=== PATIENT | female | born 2005 | race Hispanic/Latino ===

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

== ENCOUNTER 2024-02-20 22:14 | Emergency (ER) | payer OTHER, SELFPAY ==
--- OUTSIDE RECORDS SUMMARY | 2024-02-20 22:18 | XMS REPORT | Continuity of Care Document ---
Author Name Unknown Address [address] [facility]. 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 Role Phone Maldonado Castañeda NP Primary Care Physician VIKTOR FARNSWORTH Attending Clinician Unavailable Doctor Unassigned, [place] Attending Clinician U VIKTOR Mon Admitting Clinician Unavailable Payers Payer Name Policy Type Policy Number Effective Date Expirati on Date Source Allergies, Adverse Reactions, Alerts Allergy Name Allergy Type Status Severity Reaction(s) Onset Date Inactive Date Treating Clinician Comments Source NO KNOWN ALLERGIE S Drug Class Active [facility] Social History Social Habit Start Date Stop Date Quantity Comments Source [facility] identity [facility] History of Social function 2023-06-03 00:00:00 2023-06-03 00:00:00 [facility] Sex Assigned At 2005 00:00:00 2005 00:00:00 [facility] Smoking Status Start Date Stop Date Source Tobacco smoking consumption unknown [facility] Medications Ordered Medication Name Filled Medication Name Start Date Stop Date Current Medication? Ordering Clinician Indication Dosage Frequency Signature (SIG) Comments Components Source bromphenira mine-pseudo ephedrine-D M 2 mg-30 mg-10 mg/5 mL oral syrup 02-14 00:00: 00 Yes 10mg/5 mL Russel Markham TAKE 1 TAB WITH BREAKFAST 2022-10 00:00: 00 02-14 00:00 :00 No 40 Russel F Rashi TAKE 2 TABLETS AT BEDTIME. 2022-10 00:00: 00 02-14 00:00 :00 No 25 Russel F Rashi TAKE HALF TO 1 TAB AT BEDTIME 2022-10 00:00: 00 02-14 00:00 :00 No 1 Russel F Rashi TAKE 2 TABLETS AT BEDTIME. 2022-10 00:00: 00 02-14 00:00 :00 No 25 Russel F Rashi TAKE HALF TO 1 TAB AT BEDTIME 2022-10 00:00: 00 02-14 00:00 :00 No 1 Russel F Rashi propranoloL 20 mg tablet 2022-10 00:00: 00 Yes [id number] 20mg TAKE 1 TABLET BY MOUTH IN THE MORNING AND IN THE EVENING [facility] TAKE 1 TAB WITH BREAKFAST 07-19 00:00: 00 02-14 00:00 :00 No 40 Russel F Rashi TAKE 1 TABLET AT BEDTIME. 07-19 00:00: 00 02-14 00:00 :00 No 25 Russel F Rashi TAKE HALF TO 1 TAB AT BEDTIME 07-19 00:00: 00 02-14 00:00 :00 No 1 Russel F Rashi PROPRANOLOL 9 00:00: 00 Yes Russel F Rashi LATUDA 06-19 00:00: 00 02-14 00:00 :00 No Russel F Rashi TAKE 1 TABLET BY MOUTH EVERYDAY AT BEDTIME 06-17 00:00: 00 Yes Russel F Rashi TAKE 1 TAB WITH BREAKFAST 06-17 00:00: 00 02-14 00:00 :00 No 40 Russel F Rashi TAKE 1 TABLET AT BEDTIME. 06-17 00:00: 00 02-14 00:00 :00 No 25 Russel F Rashi PROPRANOLOL 06-10 00:00: 00 Yes Russel F Rashi propranoloL 20 mg tablet 06-10 00:00: 00 08-07:00 :00 No [id number] 20mg Take 1 tablet by mouth in the morning and 1 tablet in the evening. [facility] SUMATRIPTAN 06-03 00:00: 00 Yes Russel Markham atogepant (QULIPTA) 30 mg Tab 06-03 00:00: 00 Yes [id number] 1{tbl} Take 1 tablet by mouth in the morning. [facility] SUMAtriptan 50 mg tablet 06-03 00:00: 00 06-04 04:59 :00 No [id number] 50mg Take 1 tablet by mouth once now for 1 dose. Max 200mgrs in 24hr, may retake 2 hours later. [facility] LATUDA 40 mg tablet 05-21 00:00: 00 Yes 40mg Take 1 tablet by mouth daily with breakfast. [facility] lamoTRIgine 25 mg tablet 05-21 00:00: 00 Yes 25mg Take 1 tablet by mouth at bedtime. [facility] TAKE 1 TABLET AT BEDTIME. 05-21 00:00: 00 02-14 00:00 :00 No 25 Russel Markham TAKE 1 TAB WITH BREAKFAST 05-21 00:00: 00 02-14 00:00 :00 No 40 Russel Markham BUT/APAP/CA F 05-11 00:00: 00 Yes Russel Markham TAKE 1 CAPLET EVERY 4-6 HOURS DAILY NEEDED. 05-11 00:00: 00 02-14 00:00 :00 No [id number] Russel Markham DICLOFENAC DR 05-02 00:00: 00 Yes Russel Markham ONDANSETRON ODT 05-02 00:00: 00 Yes Russel Markham TAKE 1 TABLET AT BEDTIME. 04-25 00:00: 00 02-14 00:00 :00 No 25 Russel Markham TAKE 1 TABLET DAILY WITH BREAKFAST. 04-25 00:00: 00 02-14 00:00 :00 No 20 Russel Markham LATUDA 2022-0 5-30 00:00: 00 02-14 00:00 :00 No Russel F Rashi LATUDA 2022-0 5-05 00:00: 00 02-14 00:00 :00 No Russel F Rashi TAKE 1 TABLET BY MOUTH EVERYDAY AT BEDTIME 3-0 5-04 00:00: 00 Yes Russel F Rashi TAKE 1 TAB IN THE EVENING WITH DINNER 2022-0 5-04 00:00: 00 02-14 00:00 :00 No 20 Russel F Rashi TAKE 1 TABLET AT BEDTIME. 2022-0 5-04 00:00: 00 02-14 00:00 :00 No 25 Russel F Rashi LATUDA 2022-0 4-05 00:00: 00 02-14 00:00 :00 No Russel F Rashi LAMOTRIGINE 2022-0 4-04 00:00: 00 Yes Russel F Rashi TAKE 1 TABLET AT BEDTIME. 2022-0 4-04 00:00: 00 02-14 00:00 :00 No 25 Russel F Rashi TAKE 1 TAB IN THE EVENING WITH DINNER 2022-0 4-04 00:00: 00 02-14 00:00 :00 No 20 Russel F Rashi LAMOTRIGINE 2022-0 3-03 00:00: 00 Yes Russel F Rashi TAKE 1 TAB IN THE EVENING WITH DINNER 2022-0 3-03 00:00: 00 02-14 00:00 :00 No 20 Russel F Rashi TAKE 1 TABLET AT BEDTIME. 2022-0 3-03 00:00: 00 02-14 00:00 :00 No 25 Russel F Rashi TAKE 1 TAB IN THE EVENING WITH DINNER 2022-0 2-23 00:00: 00 02-14 00:00 :00 No 20 Russel F Rashi HYDROXYZ HCL 2022-0 2-13 00:00: 00 Yes Russel F Rashi LAMOTRIGINE 2022-0 2-07 00:00: 00 Yes Russel F Rashi TAKE 1 TABLET AT BEDTIME. 2022-0 2-03 00:00: 00 02-14 00:00 :00 No 25 Russel F Rashi TAKE 1 TAB IN THE EVENING WITH DINNER 2-03 00:00: 00 02-14 00:00 :00 No 20 Russel Markham LAMOTRIGINE 1-21 00:00: 00 Yes Russel Markham TAKE 1 TABLET AT BEDTIME. 1-20 00:00: 00 02-14 00:00 :00 No 25 Russel Markham TAKE 1 TAB IN THE EVENING WITH DINNER 1-20 00:00: 00 02-14 00:00 :00 No 20 Russel Markham LAMOTRIGINE 1- 00:00: 00 Yes Russel Markham TAKE 1 TO 2 TABLETS TWICE DAILY NEEDED. 1- 00:00: 00 Yes Russel Markham TAKE 1 TABLET AT BEDTIME. 1- 00:00: 00 02-14 00:00 :00 No 25 Russel Markham TAKE 1 TABLET BY MOUTH ONCE DAILY TAKE WITH 5 MG TABLET 2021-10 00:00: 00 Yes Russel Markham IBUPROFEN 800MG 2021-10 2-15 00:00: 00 Yes Russel Markham Dose Unknown 2021-10 2 00:00: 00 Yes Russel Markham MONTELUKAST CHW 5MG 2021-10 2-15 00:00: 00 Yes Russel Markham CIPROFLOXAC N 500MG 2021-10 2-15 00:00: 00 Yes Russel Markham TAKE BY MOUTH DIRECTED ON INSIDE OF PACKAGE 2021-10 00:00: 00 Yes Russel Markham Dose Unknown 2021-10 2-15 00:00: 00 Yes Russel Markham TAKE 1-2 TABLETS BY MOUTH TWICE A DAY NEEDED FOR ANXIETY OR SLEEP 2021-10 2-15 00:00: 00 02-14 00:00 :00 No 25 Russel Markham ESCITALOPRA M TAB 5MG 2021-10 2- 00:00: 00 Yes Russel Markham Dose Unknown 2021-10 1-15 00:00: 00 Yes Russel Markham IBUPROFEN 2021-10 0-19 00:00: 00 Yes 800 Russel Markham Dose Unknown 7-15 00:00: 00 Yes Russel Markham TOME CHRISTINA TABLETA TODOS LOS D 2022-0 7-14 00:00: 00 Yes 5 Russel Edin Rashi Dose Unknown 2022-0 6-02 00:00: 00 Yes Russel F Rashi Dose Unknown 2022-0 5-13 00:00: 00 Yes Russel F Rashi Dose Unknown 2022-0 3-28 00:00: 00 Yes Russel F Rashi Dose Unknown 2022-0 3-28 00:00: 00 Yes Russel F Rashi Dose Unknown 2022-0 3-28 00:00: 00 Yes Russel F Rashi Dose Unknown 2022-0 3-28 00:00: 00 Yes Russel F Rashi Dose Unknown 2-0 3-21 00:00: 00 Yes Russel F Rashi Dose Unknown 2-0 3-21 00:00: 00 Yes Russel F Rashi Dose Unknown 2-0 3-21 00:00: 00 Yes Russel F Rashi Dose Unknown 2-0 3-21 00:00: 00 Yes Russel Edin Rashi Dose Unknown 2-0 2-17 00:00: 00 Yes Russel Markham hydroxyzine HCl 25 mg tablet 2-0 2-17 00:00: 00 Yes 12mg Russel Markham Dose Unknown 2-0 2-17 00:00: 00 Yes Russel Markham TOME CHRISTINA TABLETA TODOS LOS D 2-0 2-17 00:00: 00 Yes Russel Markham ESCITALOPRA M 2-0 2-17 00:00: 00 Yes 5 Russel Markham Dose Unknown 2021-0 1-18 00:00: 00 Yes Russel Markham Lexapro 10 mg tablet 2020-1 2-23 00:00: 00 Yes 1mg Russel Markham Lexapro 5 mg tablet 2020-1 2-23 00:00: 00 Yes 1mg Russel F Rashi Dose Unknown 2020-1 2-23 00:00: 00 Yes Russel F Rashi Dose Unknown 2020-1 2-19 00:00: 00 Yes Russel F Rashi Dose Unknown 2020-1 1-19 00:00: 00 Yes Russel Markham hydroxyzine HCl 25 mg tablet 2020-1 0-18 00:00: 00 Yes 12mg Russel F Rashi Dose Unknown 2020-1 0-18 00:00: 00 Yes Russel Markham Lexapro 10 mg tablet 07-07 00:00: 00 Yes 1mg Russel Markham Dose Unknown 06-14 00:00: 00 Yes Russel Markham fluoxetine 10 mg tablet 05-17 00:00: 00 Yes mg Russel Markham hydroxyzine HCl 25 mg tablet 05-17 00:00: 00 Yes 1mg Russel Markham Dose Unknown 03-08 00:00: 00 Yes Russel Markham Dose Unknown 02-15 00:00: 00 Yes Russel Markham Dose Unknown 02-15 00:00: 00 Yes Russel Markham sumatriptan 25 mg tablet 02-09 00:00: 00 Yes 1mg Russel Markham Dose Unknown 02-09 00:00: 00 Yes Russel Markham Flonase Allergy Relief 50 mcg/actuati on nasal spray,suspe nsion 02-09 00:00: 00 Yes 1mcg/ac tuation Russel Markham prednisone 20 mg tablet 12-16 00:00: 00 Yes 1mg Russel Markham Dose Unknown 2016-10 0 00:00: 00 Yes Russel Markham prednisone 20 mg tablet 2016-10 00:00: 00 Yes 1mg Russel Markham cetirizine 10 mg tablet 2016-10 0 00:00: 00 Yes 1mg Russel Markham Tessalon Perles 100 mg capsule 2016-10 00:00: 00 Yes 1mg Russel Markham azithromyci n 250 mg tablet 2015-10 00:00: 00 Yes mg Russel Markham amoxicillin 500 mg tablet 02-20 00:00: 00 Yes 1mg Russel Markham Zithromax Z-Mehdi 250 mg tablet 11-10 00:00: 00 Yes 1mg Russel Markham Zithromax Z-Mehdi 250 mg tablet 07-04 00:00: 00 Yes 1mg Russel Markham Immunizations Ordered Immunization Name Filled Immunization Name Date Status Comments Source meningococcal MCV4P meningococcal MCV4P 00:00:00 Completed Russel Markham HPV, quadrivalent HPV, quadrivalent 2016-05-30 00:00:00 Completed Russel Markham HPV, quadrivalent HPV, quadrivalent 2015-11-23 00:00:00 Completed Russel Makrham Tdap Tdap 2015-11-23 00:00:00 Completed Russel Markham meningococcal MCV4P meningococcal MCV4P 00:00:00 Completed Russel Markham Vital Signs Vital Name Observation Time Observation Value Comments S ource Systolic blood pressure 2023-06-11 18:03:00 105 mm[Hg] [place] [facility] Diastolic blood pressure 2023-06-11 18:03:00 73 mm[Hg] [facility] Heart rate 2023-06-11 18:03:00 71 /min [facility] Body height 2023-06-11 18:03:00 160 cm [facility] Body weight 2023-06-11 18:03:00 90.402 kg [facility] BMI 2023-06-11 18:03:00 35.30 kg/m2 [facility] Systolic blood pressure 2023-06-03 18:53:00 113 mm[Hg] [facility] Diastolic blood pressure 2023-06-03 18:53:00 79 mm[Hg] [facility] Body height 2023-06-03 18:53:00 165.1 cm [facility] Body weight 2023-06-03 18:53:00 89.903 kg [facility] BMI 2023-06-03 18:53:00 32.98 kg/m2 [facility] BP Systolic 2024-02-15 10:50:00 122 mm[Hg] Martin Markham BP Diastolic 2024-02-15 10:50:00 80 mm[Hg] Brandon Markham Weight Measured 2024-02-15 10:50:00 182.20 pounds Russel Markham Height Measured 2024-02-15 10:50:00 64.00 inches Russel Markham Body Temperature 2024-02-15 10:50:00 98.20 degrees Russel Markham Heart Rate 2024-02-15 10:50:00 71.00 /min Lupe en F Rashi Respiratory Rate 2024-02-15 10:50:00 19.00 /min Russel F Rashi BP Systolic 2023-05-11 14:27:00 111 mm[Hg] Step hen F Rashi BP Diastolic 2023-05-11 14:27:00 73 mm[Hg] Brandon phen F Rashi Weight Measured 2023-05-11 14:27:00 201.80 pounds Russel F Rashi Height Measured 2023-05-11 14:27:00 64.00 inches Russel F Rashi Body Temperature 2023-05-11 14:27:00 99.30 degrees Russel F Rashi Heart Rate 2023-05-11 14:27:00 84.00 /min Lupe en F Rashi Respiratory Rate 2023-05-11 14:27:00 Russel F Rashi BP Systolic 2023-02-21 16:40:00 Step hen F Rashi BP Diastolic 2023-02-21 16:40:00 Brandon phen F Rashi Weight Measured 2023-02-21 16:40:00 Russel F Rashi Height Measured 2023-02-21 16:40:00 Russel F Rashi Body Temperature 2023-02-21 16:40:00 Russel F Rashi Heart Rate 2023-02-21 16:40:00 Lupe en F Rashi Respiratory Rate 2023-02-21 16:40:00 Russel F Rashi BP Systolic 2023-01-25 16:04:00 142 mm[Hg] Step hen F Rashi BP Diastolic 2023-01-25 16:04:00 87 mm[Hg] Brandon phen F Rashi Weight Measured 2023-01-25 16:04:00 207.60 pounds Russel F Rashi Height Measured 2023-01-25 16:04:00 64.00 inches Russel F Rashi Body Temperature 2023-01-25 16:04:00 98.30 degrees Russel F Rashi Heart Rate 2023-01-25 16:04:00 109.00 /min Step hen F Rashi Respiratory Rate 2023-01-25 16:04:00 18.00 /min Russel F Rashi BP Systolic 2022-03-05 09:05:00 122 mm[Hg] Step hen F Rashi BP Diastolic 2022-03-05 09:05:00 81 mm[Hg] Brandon phen F Rashi Weight Measured 2022-03-05 09:05:00 213.80 pounds Russel F Rashi Height Measured 2022-03-05 09:05:00 64.37 inches Russel F Rashi Body Temperature 2022-03-05 09:05:00 98.40 degrees Russel F Rashi Heart Rate 2022-03-05 09:05:00 99.00 /min Lupe en F Rashi Respiratory Rate 2022-03-05 09:05:00 Russel F Rashi BP Systolic 2021-06-14 15:45:00 Step hen F Rashi BP Diastolic 2021-06-14 15:45:00 Brandon phen F Rashi Weight Measured 2021-06-14 15:45:00 200.60 pounds Russel F Rashi Height Measured 2021-06-14 15:45:00 64.37 inches Russel F Rashi Body Temperature 2021-06-14 15:45:00 97.60 degrees Russel F Rashi Heart Rate 2021-06-14 15:45:00 85.00 /min Lupe en F Rashi Respiratory Rate 2021-06-14 15:45:00 Russel F Rashi BP Systolic 2021-05-17 13:23:00 136 mm[Hg] Step hen F Rashi BP Diastolic 2021-05-17 13:23:00 83 mm[Hg] Brandon phen F Rashi Weight Measured 2021-05-17 13:23:00 195.40 pounds Russel F Rashi Height Measured 2021-05-17 13:23:00 64.37 inches Russel F Rashi Body Temperature 2021-05-17 13:23:00 98.10 degrees Russel F Rashi Heart Rate 2021-05-17 13:23:00 89.00 /min Lupe en F Rashi Respiratory Rate 2021-05-17 13:23:00 Russel F Rashi BP Systolic 2021-02-15 09:25:00 87 mm[Hg] Step hen F Rashi BP Diastolic 2021-02-15 09:25:00 54 mm[Hg] Brandon phen F Rashi Weight Measured 2021-02-15 09:25:00 194.80 pounds Russel F Rashi Height Measured 2021-02-15 09:25:00 65.35 inches Russel F Rashi Body Temperature 2021-02-15 09:25:00 98.70 degrees Russel F Rashi Heart Rate 2021-02-15 09:25:00 79.00 /min Lupe en F Rashi Respiratory Rate 2021-02-15 09:25:00 18.00 /min Russel Edin Markham BP Systolic 2018-12-16 10:49:00 115 mm[Hg] Step hen F Rashi BP Diastolic 2018-12-16 10:49:00 76 mm[Hg] Brandon phen F Rashi Weight Measured 2018-12-16 10:49:00 183.40 pounds Russellizbet Markham Height Measured 2018-12-16 10:49:00 63.00 inches Russel F Rashi Body Temperature 2018-12-16 10:49:00 97.70 degrees Russel Markham Heart Rate 2018-12-16 10:49:00 87.00 /min Lupe en F Rashi Respiratory Rate 2018-12-16 10:49:00 16.00 /min Russellizbet Markham BP Systolic 2017-07-27 08:57:00 105 mm[Hg] Step hen F Rashi BP Diastolic 2017-07-27 08:57:00 68 mm[Hg] Brandon phen F Rashi Weight Measured 2017-07-27 08:57:00 177.60 pounds Russel Markahm Height Measured 2017-07-27 08:57:00 63.00 inches Russel Markham Body Temperature 2017-07-27 08:57:00 98.50 degrees Russel Markham Heart Rate 2017-07-27 08:57:00 85.00 /min Lupe en F Rashi Respiratory Rate 2017-07-27 08:57:00 16.00 /min Russel Markham Procedures Procedure Date / Time Performed Performing Clinicia n Source CT HEAD WO CONTRAST 2023-06-10 20:27:00 Viktor [facility] Encounters Start Date/Time End Date/Time Encounter Type Admission Type Attending [facility] Facility Care Department Encounter ID Source 2024-02-15 10:45:44 2024-02-15 10:45:44 Outpatient [facility] [id number] Russel Markham 2024-02-15 00:00:00 2024-02-15 00:00:00 Outpatient Visit [facility] [id number] Russel Markham 2023-08-12 11:00:00 2023-08-12 11:00:00 Outpatient R VIKTOR FARNSWORTH [facility] [id number] [facility] 2023-08-07 00:00:00 2023-08-07 00:00:00 [facility] 1..840.114 350.1.13.10 [id number] [id number] [facility] 2023-06-28 08:05:49 2023-06-28 08:05:49 Outpatient SFA [facility] [id number] Russel Markham 2023-06-11 13:00:00 2023-06-11 13:23:59 Outpatient R VIKTOR FARNSWORTH [facility] [id number] [facility] 2023-06-11 13:00:00 2023-06-11 13:23:59 Office [facility] 1..840.114 350.1.13.10 4.2.7.2.686 [id number] [facility] 2023-06-10 15:16:13 2023-06-10 23:59:00 Outpatient R VIKTOR FARNSWORTH [facility] [id number] [facility] 2023-06-10 15:16:13 2023-06-10 23:59:00 Hospital Encounter Viktor Farnsworth [facility] 1..840.114 350.1.13.10 4.2.7.2.686 [id number] [facility] 2023-06-10 00:00:00 2023-06-10 00:00:00 [facility] 1..840.114 350.1.13.10 4.2.7.2.686 [id number] [facility] 2023-06-10 00:00:00 2023-06-10 00:00:00 Patient Secure Msg Doctor Unassigned, [place] [facility] 1.2.840.114 350.1.13.10 4.2.7.2.686 [id number] [facility] 2023-06-03 14:00:00 2023-06-03 14:19:55 Outpatient R RUDY FARNSWORTHSSICA [facility] [id number] [facility] 2023-06-03 14:00:00 2023-06-03 14:19:55 [facility] 1.2.840.114 350.1.13.10 4.2.7.2.686 [id number] [facility] 2023-05-31 08:01:21 2023-05-31 08:01:21 Outpatient SFA SFA [id number] Russel Jesus Rashi 2023-04-29 08:05:13 2023-04-29 08:05:13 Outpatient SFA S[facility] [id number] Russel Jesus Rashi 2023-01-25 16:13:07 2023-01-25 16:13:07 Outpatient SFA [facility] [id number] Russel Jesus Rashi 2023-01-17 09:56:59 2023-01-17 09:56:59 Outpatient SFA SFA [id number] Russel Jesus Rashi 2022-12-12 11:21:39 2022-12-12 11:21:39 Outpatient SFA SFA [id number] Russel Edin Rashi 2022-11-22 15:07:26 2022-11-22 15:07:26 Outpatient SFA SFA [id number] Russel Jesus Rashi 2022-11-14 16:13:33 2022-11-14 16:13:33 Outpatient SFA [facility] [id number] Russel Edin Rashi 2022-11-08 13:21:26 2022-11-08 13:21:26 Outpatient SFA S[facility] [id number] Russel Markham 2022-10-30 14:01:58 2022-10-30 14:01:58 Outpatient [facility] [id number] Russel Markham 2022-10-18 13:08:08 2022-10-18 13:08:08 Outpatient [facility] [id number] Russel Markham Results Test Description Test Time Test Comments Results Result Co mments Source LIPID [id number] 01:50:46* Test Item Value Reference Range Interpretation Comme nts CHOLESTEROL (test code = 2210) 147 MG/DL <200 TRIGLYCERIDES (test code = 2232) 213 MG/DL <150 H HDL CHOLESTEROL (test code = 2220) 33 MG/DL >39 L CALC LDL CHOL (test code = 2237) 83 MG/DL <100 NOTE: CALCULATED LDL IS BASED ON GUADALUPE-TAN METHOD WHICHINCLUDES ADJUSTABLE TRIGLYCERIDE:VLDL CHOLESTEROL RATIO.THIS FACTOR VARIES BY MEASURED TRIGLYCERIDE AND NON-HDLCHOLESTEROL CONCENTRATIONS WITH INCREASED CALCULATED LDL SEENIN HIGHER TRIGLYCERIDE OR LOWER NON-HDL SPECIMENS. FOR MOREINFORMATION, SEE CLIENT ANNOUNCEMENT AT [email or web address] RISK RATIO LDL/HDL (test code = 2238) 2.52 RATIO <3.22 TSH, THIRD [id number] 01:27:36* Test Item Value Reference Range Interpretation Comme nts TSH, THIRD GENERATION (test code = 2821) 2.670 UIU/ML 0.400-4.100 [facility] has impo rtant pathology staff changes effective 12/19/2022. New pathology staff will provide uninterrupted, excellent patient care and clinical consultation. See URL: [email or web address] UNLESS OTHERWISE INDICATED, ALL TESTING PERFORMED AT [facility] [address] [place] [id number] CONCRETE TECHNICIAN: LC DOMINGUEZ M.D. CLIA NUMBER [id number] [facility] [place]. [id number] COMPREHENSIVE METABOLIC [id number] 00:00:00* Test Item Value Reference Range Interpretation Comme nts GLUCOSE (test code = 2217) 118 MG/DL BUN (test code = 2208) 7 MG/DL CREATININE (test code = 2214) 0.63 MG/DL eGFR (2020 CKD-EPI) (test code = 80874) 131 ML/MIN/1.73 CALC BUN/CREAT (test code = 2235) 11 RATIO SODIUM (test code = 2231) 143 MEQ/L POTASSIUM (test code = 2228) 4.0 MEQ/L CHLORIDE (test code = 2215) 105 MEQ/L CARBON DIOXIDE (test code = 2206) 22 MEQ/L CALCIUM (test code = 2209) 9.8 MG/DL PROTEIN, TOTAL (test code = 2229) 6.8 G/DL ALBUMIN (test code = 2201) 4.4 G/DL CALC GLOBULIN (test code = 2240) 2.4 G/DL CALC A/G RATIO (test code = 2234) 1.8 RATIO BILIRUBIN, TOTAL (test code = 2207) <0.2 MG/DL ALKALINE PHOSPHATASE (test code = 2204) 77 U/L AST (test code = 2218) 17 U/L ALT (test code = 2219) 16 U/L Russel Jesus RashiLIPID [id number] 00:00:00* Test Item Value Reference Range Interpretation Comme nts CHOLESTEROL (test code = 2210) 147 MG/DL TRIGLYCERIDES (test code = 2232) 213 MG/DL HDL CHOLESTEROL (test code = 2220) 33 MG/DL CALC LDL CHOL (test code = 2237) 83 MG/DL RISK RATIO LDL/HDL (test cod e = 2238) 2.52 RATIO Russel EnglandH, THIRD [id number] 00:00:00* Test Item Value Reference Range Interpretation Comme nts TSH, THIRD GENERATION (test code = 2821) 2.670 UIU/ML Russel Jesus RashiCBC W/AUTO DIFF WITH [id number] 03:45:55* Test Item Value Reference Range Interpretation Comme nts WBC (test code = 1001) 6.3 K/UL 3.5-11.0 RBC (test code = 1002) 4.37 M/UL 3.80-5.40 HEMOGLOBIN (test code = 1003) 12.6 G/DL 11.5-15.5 HEMATOCRIT (test code = 1004) 37.3 % 34.0-45.0 MCV (test code = 1005) 85.4 fL 80.0-99.0 MCH (test code = 1006) 28.8 PG 25.0-33.0 MCHC (test code = 1007) 33.8 G/DL 31.0-36.0 RDW (test code = 1038) 13.1 % 11.5-15.0 NEUTROPHILS (test code = 1008) 53.2 % LYMPHOCYTES (test code = 1010) 38.3 % MONOCYTES (test code = 1011) 6.6 % EOSINOPHILS (test code = 1012) 1.4 % BASOPHILS (test code = 1013) 0.3 % IMMATURE GRANULOCYTES (test code = 1036) 0.2 % NUCLEATED RBCS (test code = 1065) 0.0 /100 WBC'S See_Comment [Automated messa ge] The system which generated this result transmitted reference range: 0.0. The reference range was not used to interpret this result as normal/abnormal. PLATELET COUNT (test code = 1015) 293 K/UL 130-400 ABSOLUTE NEUTROPHILS (test code = 1066) 3.36 K/UL 1.50-7.50 ABSOLUTE LYMPHOCYTES (test code = 1067) 2.42 K/UL 1.00-4.00 ABSOLUTE MONOCYTES (test code = 1068) 0.42 K/UL 0.20-1.00 ABSOLUTE EOSINOPHILS (test code = 1040) 0.09 K/UL 0.00-0.50 ABSOLUTE BASOPHILS (test code = 1069) 0.02 K/UL 0.00-0.20 ABS IMMATURE GRANULOCYTES (test code = 1020) 0.01 K/UL 0.00-0.10 ABS NUCLEATED RBCS (test code = 18294) 0.00 K/UL 0.00-0.11 HEMOGLOBIN [id number] 03:43:50* Test Item Value Reference Range Interpretation Comme nts HEMOGLOBIN A1c (test code = 95232) 5.4 % 4.2-5.6 CBC W/AUTO [id number] 00:00:00* Test Item Value Reference Range Interpretation Comme nts WBC (test code = 1001) 6.3 K/UL RBC (test code = 1002) 4.37 M/UL HEMOGLOBIN (test code = 1003) 12.6 G/DL HEMATOCRIT (test code = 1004) 37.3 % MCV (test code = 1005) 85.4 fL MCH (test code = 1006) 28.8 PG MCHC (test code = 1007) 33.8 G/DL RDW (test code = 1038) 13.1 % NEUTROPHILS (test code = 1008) 53.2 % LYMPHOCYTES (test code = 1010) 38.3 % MONOCYTES (test code = 1011) 6.6 % EOSINOPHILS (test code = 1012) 1.4 % BASOPHILS (test code = 1013) 0.3 % IMMATURE GRANULOCYTES (test code = 1036) 0.2 % NUCLEATED RBCS (test code = 1065) 0.0 /100WBC'S PLATELET COUNT (test code = 1015) 293 K/UL ABSOLUTE NEUTROPHILS (test c ode = 1066) 3.36 K/UL ABSOLUTE LYMPHOCYTES (test c ode = 1067) 2.42 K/UL ABSOLUTE MONOCYTES (test cod e = 1068) 0.42 K/UL ABSOLUTE EOSINOPHILS (test c ode = 1040) 0.09 K/UL ABSOLUTE BASOPHILS (test cod e = 1069) 0.02 K/UL ABS IMMATURE GRANULOCYTES (t est code = 1020) 0.01 K/UL ABS NUCLEATED RBCS (test cod e = 08507) 0.00 K/UL [facility] MarkhamHEMOGLOBIN [id number] 00:00:00* Test Item Value Reference Range Interpretation Comme [facility] HEMOGLOBIN A1c (test code = 44409) 5.4 % [facility] [id number] 05:32:42* Test Item Value Reference Range Interpretation Comme [facility] TSH, THIRD GENERATION (test code = 2821) 0.736 UIU/ML 0.400-4.100 HEMOGLOBIN [id number] 03:54:12* Test Item Value Reference Range Interpretation Comme [facility] HEMOGLOBIN A1c (test code = 86296) 5.3 % 4.2-5.6 COMPREHENSIVE METABOLIC [id number] 03:45:17* Test Item Value Reference Range Interpretation Comme nts GLUCOSE (test code = 2217) 93 MG/DL 70-99 BUN (test code = 2208) 9 MG/DL 6-20 CREATININE (test code = 2214) 0.70 MG/DL 0.50-1.10 eGFR (2020 CKD-EPI) (test code = 35135) 128 ML/MIN/1.73 >60 CALC BUN/CREAT (test code = 2235) 13 RATIO 6-28 SODIUM (test code = 2231) 140 MEQ/L 133-146 POTASSIUM (test code = 222) 4.5 MEQ/L 3.5-5.4 CHLORIDE (test code = 2215) 102 MEQ/L 95-107 CARBON DIOXIDE (test code = 2205) 25 MEQ/L 19-31 CALCIUM (test code = 2208) 10.6 MG/DL 8.5-10.5 H PROTEIN, TOTAL (test code = 2228) 7.9 G/DL 6.1-8.3 ALBUMIN (test code = 2200) 5.0 G/DL 3.5-5.2 CALC GLOBULIN (test code = 2240) 2.9 G/DL 2.1-3.7 CALC A/G RATIO (test code = 2233) 1.7 RATIO 1.0-2.6 BILIRUBIN, TOTAL (test code = 2206) 0.2 MG/DL See_Comment [Automated me ssage] The system which generated this result transmitted reference range: <=1.2. The reference range was not used to interpret this result as normal/abnormal. ALKALINE PHOSPHATASE (test code = 2203) 81 U/L 41-120 AST (test code = 221) 15 U/L 9-40 ALT (test code = 221) 17 U/L 5-40 LIPID [id number] 03:45:17* Test Item Value Reference Range Interpretation Comme nts CHOLESTEROL (test code = 2210) 185 MG/DL <200 TRIGLYCERIDES (test code = 2232) 204 MG/DL <150 H HDL CHOLESTEROL (test code = 2219) 38 MG/DL >39 L CALC LDL CHOL (test code = 2236) 115 MG/DL <100 H NOTE: CALCULATED LDL IS BASED ON GUADALUPE-TAN METHOD WHICHINCLUDES ADJUSTABLE TRIGLYCERIDE:VLDL CHOLESTEROL RATIO.THIS FACTOR VARIES BY MEASURED TRIGLYCERIDE AND NON-HDLCHOLESTEROL CONCENTRATIONS WITH INCREASED CALCULATED LDL SEENIN HIGHER TRIGLYCERIDE OR LOWER NON-HDL SPECIMENS. FOR MOREINFORMATION, SEE CLIENT ANNOUNCEMENT AT [email or web address] RISK RATIO LDL/HDL (test code = 223) 3.03 RATIO <3.22 UNLESS OTHERW ISE INDICATED, ALL TESTING PERFORMED [employer] [facility] [employer] 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 CLIA NUMBER [id number] [facility] [place]. [id number] CBC W/AUTO DIFF WITH [id number] 02:25:00* Test Item Value Reference Range Interpretation Comme nts WBC (test code = 1001) 6.3 K/UL 3.5-11.0 RBC (test code = 1002) 4.75 M/UL 3.80-5.40 HEMOGLOBIN (test code = 1003) 13.7 G/DL 11.5-15.5 HEMATOCRIT (test code = 1004) 40.1 % 34.0-45.0 MCV (test code = 1005) 84.4 fL 80.0-99.0 MCH (test code = 1006) 28.8 PG 25.0-33.0 MCHC (test code = 1007) 34.2 G/DL 31.0-36.0 RDW (test code = 1038) 13.8 % 11.5-15.0 NEUTROPHILS (test code = 1008) 65.9 % LYMPHOCYTES (test code = 1010) 25.8 % MONOCYTES (test code = 1011) 6.4 % EOSINOPHILS (test code = 1012) 1.1 % BASOPHILS (test code = 1013) 0.5 % IMMATURE GRANULOCYTES (test code = 1036) 0.3 % NUCLEATED RBCS (test code = 1065) 0.0 /100 WBC'S See_Comment [Automated messa ge] The system which generated this result transmitted reference range: 0.0. The reference range was not used to interpret this result as normal/abnormal. PLATELET COUNT (test code = 1015) 306 K/UL 130-400 ABSOLUTE NEUTROPHILS (test code = 1066) 4.12 K/UL 1.50-7.50 ABSOLUTE LYMPHOCYTES (test code = 1067) 1.61 K/UL 1.00-4.00 ABSOLUTE MONOCYTES (test code = 1068) 0.40 K/UL 0.20-1.00 ABSOLUTE EOSINOPHILS (test code = 1040) 0.07 K/UL 0.00-0.50 ABSOLUTE BASOPHILS (test code = 1069) 0.03 K/UL 0.00-0.20 ABS IMMATURE GRANULOCYTES (test code = 1020) 0.02 K/UL 0.00-0.10 ABS NUCLEATED RBCS (test code = 39260) 0.00 K/UL 0.00-0.11 COMPREHENSIVE METABOLIC [id number] 00:00:00* Test Item Value Reference Range Interpretation Comme nts GLUCOSE (test code = 2217) 93 MG/DL BUN (test code = 2208) 9 MG/DL CREATININE (test code = 2214) 0.70 MG/DL eGFR (2020 CKD-EPI) (test code = 17535) 128 ML/MIN/1.73 CALC BUN/CREAT (test code = 2235) 13 RATIO SODIUM (test code = 2231) 140 MEQ/L POTASSIUM (test code = 2228) 4.5 MEQ/L CHLORIDE (test code = 2215) 102 MEQ/L CARBON DIOXIDE (test code = 2206) 25 MEQ/L CALCIUM (test code = 2209) 10.6 MG/DL PROTEIN, TOTAL (test code = 2229) 7.9 G/DL ALBUMIN (test code = 2201) 5.0 G/DL CALC GLOBULIN (test code = 2240) 2.9 G/DL CALC A/G RATIO (test code = 2234) 1.7 RATIO BILIRUBIN, TOTAL (test code = 2207) 0.2 MG/DL ALKALINE PHOSPHATASE (test code = 2204) 81 U/L AST (test code = 2218) 15 U/L ALT (test code = 2219) 17 U/L [facility]el [facility]AUTO [id number] 00:00:00* Test Item Value Reference Range Interpretation Comme nts WBC (test code = 1001) 6.3 K/UL RBC (test code = 1002) 4.75 M/UL HEMOGLOBIN (test code = 1003) 13.7 G/DL HEMATOCRIT (test code = 1004) 40.1 % MCV (test code = 1005) 84.4 fL MCH (test code = 1006) 28.8 PG MCHC (test code = 1007) 34.2 G/DL RDW (test code = 1038) 13.8 % NEUTROPHILS (test code = 1008) 65.9 % LYMPHOCYTES (test code = 1010) 25.8 % MONOCYTES (test code = 1011) 6.4 % EOSINOPHILS (test code = 1012) 1.1 % BASOPHILS (test code = 1013) 0.5 % IMMATURE GRANULOCYTES (test code = 1036) 0.3 % NUCLEATED RBCS (test code = 1065) 0.0 /100WBC'S PLATELET COUNT (test code = 1015) 306 K/UL ABSOLUTE NEUTROPHILS (test c ode = 1066) 4.12 K/UL ABSOLUTE LYMPHOCYTES (test c ode = 1067) 1.61 K/UL ABSOLUTE MONOCYTES (test cod e = 1068) 0.40 K/UL ABSOLUTE EOSINOPHILS (test c ode = 1040) 0.07 K/UL ABSOLUTE BASOPHILS (test cod e = 1069) 0.03 K/UL ABS IMMATURE GRANULOCYTES (t est code = 1020) 0.02 K/UL ABS NUCLEATED RBCS (test cod e = 33053) 0.00 K/UL Russel MarkhamHEMOGLOBIN [id number] 00:00:00* Test Item Value Reference Range Interpretation Comme nts HEMOGLOBIN A1c (test code = 26158) 5.3 % Russel MarkhamTSH, THIRD [id number] 00:00:00* Test Item Value Reference Range Interpretation Comme ady TSH, THIRD GENERATION (test code = 2821) 0.736 UIU/ML Russel MarkhamLIPID [id number] 00:00:00* Test Item Value Reference Range Interpretation Comme nts CHOLESTEROL (test code = 2210) 185 MG/DL TRIGLYCERIDES (test code = 2232) 204 MG/DL HDL CHOLESTEROL (test code = 2220) 38 MG/DL CALC LDL CHOL (test code = 2237) 115 MG/DL RISK RATIO LDL/HDL (test cod e = 2238) 3.03 RATIO Russel MarkhamHEMOGLOBIN [id number] 00:00:00* Test Item Value Reference Range Interpretation Comme ady HEMOGLOBIN A1c (test code = 4548-4) 5.0 %oftotalHgb Russel MarkhamCBC (INCLUDES DIFF/PLT)2021-02-16 00:00:00* Test Item Value Reference Range Interpretation Comme nts WHITE BLOOD CELL COUNT (test code = 6690-2) 6.0 Thousand/uL RED BLOOD CELL COUNT (test code = 789-8) 4.52 Million/uL HEMOGLOBIN (test code = 718-7) 12.3 g/dL HEMATOCRIT (test code = 4544-3) 37.8 % MCV (test code = 787-2) 83.6 fL MCH (test code = 785-6) 27.2 pg MCHC (test code = 786-4) 32.5 g/dL RDW (test code = 788-0) 14.4 % PLATELET COUNT (test code = 777-3) 280 Thousand/uL MPV (test code = 776-5) 11.9 fL ABSOLUTE NEUTROPHILS (test code = 751-8) 3780 cells/uL ABSOLUTE BAND NEUTROPHILS (test code = 44822-8) DNR cells/uL ABSOLUTE METAMYELOCYTES (tutu t code = 78428-7) DNR cells/uL ABSOLUTE MYELOCYTES (test code = 00616-9) DNR cells/uL ABSOLUTE PROMYELOCYTES (test code = 71948-1) DNR cells/uL ABSOLUTE LYMPHOCYTES (test code = 731-0) 1746 cells/uL ABSOLUTE MONOCYTES (test cod e = 742-7) 372 cells/uL ABSOLUTE EOSINOPHILS (test code = 711-2) 72 cells/uL ABSOLUTE BASOPHILS (test cod e = 704-7) 30 cells/uL ABSOLUTE BLASTS (test code = 25077-9) DNR cells/uL ABSOLUTE NUCLEATED RBC (test code = 65792-9) DNR cells/uL NEUTROPHILS (test code = 770-8) 63 % BAND NEUTROPHILS (test code = 764-1) DNR % METAMYELOCYTES (test code = 740-1) DNR % MYELOCYTES (test code = 749-2) DNR % PROMYELOCYTES (test code = 783-1) DNR % LYMPHOCYTES (test code = 736-9) 29.1 % REACTIVE LYMPHOCYTES (test code = 68469-7) DNR % MONOCYTES (test code = 5905-5) 6.2 % EOSINOPHILS (test code = 713-8) 1.2 % BASOPHILS (test code = 706-2) 0.5 % BLASTS (test code = 709-6) DNR % NUCLEATED RBC (test code = 22229-7) DNR /100WBC COMMENT(S) (test code = 8251-1) DNR Russel Jesus AustinLIPID PANEL (REFL)2021-02-16 00:00:00* Test Item Value Reference Range Interpretation Comme nts CHOLESTEROL, TOTAL (test cod e = 2093-3) 136 mg/dL HDL CHOLESTEROL (test code = 2085-9) 43 mg/dL TRIGLYCERIDES (test code = 2571-8) 92 mg/dL LDL-CHOLESTEROL (test code = 18537-5) 75 mg/dL(calc) CHOL/HDLC RATIO (test code = 9830-1) 3.2 (calc) NON HDL CHOLESTEROL (test co de = 79971-6) 93 mg/dL(calc) Russel MarkhamCOMPREHENSIVE METABOLIC [id number] 00:00:00* Test Item Value Reference Range Interpretation Comme nts GLUCOSE (test code = 2345-7) 78 mg/dL UREA NITROGEN (BUN) (test code = 3094-0) 12 mg/dL CREATININE (test code = 2160-0) 0.68 mg/dL eGFR NON-AFR. NIGERIEN (test code = 59267-1) DNR mL/min/1.73m2 eGFR (test code = 14423-0) DNR mL/min/1.73m2 BUN/CREATININE RATIO (test code = 3097-3) NOT APPLICABLE (calc) SODIUM (test code = 2951-2) 139 mmol/L POTASSIUM (test code = 2823-3) 4.3 mmol/L CHLORIDE (test code = 2075-0) 105 mmol/L CARBON DIOXIDE (test code = 8-9) 24 mmol/L CALCIUM (test code = 83170-3) 9.7 mg/dL PROTEIN, TOTAL (test code = 2885-2) 7.3 g/dL ALBUMIN (test code = 1751-7) 4.3 g/dL GLOBULIN (test code = 58641-0) 3.0 g/dL(calc) ALBUMIN/GLOBULIN RATIO (test code = 1759-0) 1.4 (calc) BILIRUBIN, TOTAL (test code = 1975-2) 0.3 mg/dL ALKALINE PHOSPHATASE (test code = 6768-6) 68 U/L AST (test code = 1920-8) 14 U/L ALT (test code = 1742-6) 10 U/L Russel MarkhamZlguttOOD1750-19-18 00:00:00* Test Item Value Reference Range Interpretation Comme nts TSH (test code = 3016-3) 1.44 mIU/L Russel MarkhamCULTURE, [id number] 00:00:00* Test Item Value Reference Range Interpretation Comme nts CULTURE, THROAT (test code = 80872) SPECIMEN NUMBER: [id number] Russel Markham Notes Date/Time Note Provider Source 2024-02-15 00:00:00 Cx5yhJQkX8QCr8Yh+6Qf1qKevuA2xTSewAt A8It4sOM/oalIT0eKQG91IXFZMqBD3002-7 02-14T00:00:00+ +-------- ----+| Plan Activity | Plan Date |+ + +| Prednisone 20 mg x 7 days. | 2017-07-27 || Albuterol inhaler to use every 4-6 hours as needed | || CXR | || | || | || Verbal rx given. SE per pharmacy | |+ + +| Heart Healthy diet, exercise, weight management | 2017-07-27 || Increase exercise to 45 minutes per day at least 4-5 times per week. | |+ + +| Start Prednisone 20 mg PO daily x 7 days. | 2018-12-16 || Continue to use Albuterol inhaler as needed. | || F/u with PCP for further management of Asthma as she is here only for an acute | || visit. | || Asthma action plan discussed | || Avoidance of asthma triggers if possible. | || Avoid exposure to cigarette smoke or fumes. | || Anyone with asthma should be prepared for an emergency. A severe asthma attack | || often occurs with few warning signs. It can happen quickly and progress rapidly | || to asphyxiation. Even if your asthma under control, it could still get worse | || without realizing it. | || Emergency Asthma Symptoms: Unable to speak in full sentences, persistent | || shortness of breath, bluish tint to lips, confusion, and/or chest that feels | || closed. CALL 911 OR GO TO THE CLOSEST EMERGENCY DEPARTMENT IF YOU ARE | || EXPERIENCING THESE SYMPTOMS. | |+ + +| Recommend diet and lifestyle modifications | 2018-12-16 || Avoid sugary drinks and processed foods | || Exercise daily for one hour | |+ + +| Auto-Add by COVID19 Screen Import | 2021-02-09 || Referred for Covid19 testing | || Quarantine until test results come back | || Continue supportive care measures | || Counseled family to practice social distancing, avoid large gatherings, wear | || masks, and good hand hygiene | || Will follow up test results | || ER warnings were given | || Educated family on signs and symptoms of Covid19 | |+ + +| Bromfed sent. Use 2-3 days, then start oral antihistamine daily | 2021-02-09 || Solumedrol 80mg IM x1 | || Avoid allergic triggers | || Follow up as needed or if worsening | |+ + +| Continue OTC analgesics as it is effective for pain control | 2021-02-09 || fioricet was prescribed to be used as needed | || Referral to Neurology was given | || ER red flags for headaches were given | |+ + +| Continue well balanced diet. Avoid sugary drinks such as soda. | 2021-02-15 |+ + +| Recommend one hour of physical activity daily. | 2021-02-15 |+ + +| PHQ was positive for depression | 2021-05-17 || Referral to counseling was provided | || Will start Fluoxetine - will start 10 mg for the first week and can increase to | || 20 mg daily after the first week | || Discussed side effects of the medication and the small risk possible suicidal | || ideation - patient with good support system | || Follow up in 2-4 weeks or sooner for any concerns | |+ + +| Strep testing | 2022-01-15 || 1.) Supportive care: Rest and keep hydrated. Warm salt water gargles 3-4 times | || a day or lozenges for sore throat. Warm honey drinks. Tylenol or ibuprofen as | || needed for fever or pain. | || 2.) RTC if symptoms persist more than 2 weeks. Sooner if worsening with fever | || >102 for 48 hours, earache, severe sore throat, | || 3.)Patient and family educated to rtc or go to ER/urgent care if symptoms | || persist, high fever develops, trouble breathing, muffled voice develops, | || drooling from the mouth, uvula becomes deviated to one side, rash develops, or | || any other concerning symptoms. | |+ + +| Healthy diet and exercise. | 2022-03-05 |+ + +| ImmTrac reviewed - no information available. | 2022-03-05 || Consent obtained | || Administer MCV4 | || Monitor for symptoms | |+ + +| 1. Routine well adult visit | 2023-01-25 || 2. blood pressure, weight, height, and BMI calculated | || 3. Dietary: Recommend 3 meals a day that include lean protein, at least 5 | || servings of fruits and vegetables, whole grains, and at least 3 servings of | || dairy products or fortified soy milk. Limit food and drinks that are high in | || fat, salt, and sugar. | || 4. Physical activity: aim for 150 minutes of moderate physical activity (like | || fast walking) or 75 minutes of vigorous activity (like running) weekly | || 5. Vaccination declined | |+ + +| CBC and CMP pending | 2023-01-25 |+ + +| a1c pending | 2023-01-25 |+ + +| lipid panel pending | 2023-01-25 |+ + +| TSH pending | 2023-01-25 |+ + +57254-1 Plan of TreatmentLNCARE PLANTXTSFA|[id number]|2.16.840.1.1 88009.10.20.22.2.10AVAvailable for patient khsgIotppcjHrwbffnmaNSENr38 Section NarrativeNARRATIVEFormatted C-CDA narrative textSFAStbianka Cyr [facility] System2024-04-27T00:00:00 [facility] 2023-[facility]-10 16:18:40 c0ztO657Qxo/ghXGtu2C0/XT9zqCaau3Q9H bgqKDqo/mzh74kiV7MMoz66Q0XsJA9989-8 06-10T16:18:40 Sent pt [employer] message updating her of the change of medication to Propranolol. 78948-8Jcshyhaoq encounter NcraUJ0042-77-89E50:19:03Telephone encounter NoteTXT1.2.840.772189.1.13.104.2.7. 2.066286|[id number] for patient rovs54292-4YnccKP217341019Gggdyc Phillips [address] Fr[id number] 8RTNFVUPVFKLBWFSEQOSYWC1988-61-81E2 6:19:031.2.840.009541.1.72.3.15|1.2 .840.392036.1.13.104.2.7.2.727879_1 [id number] Estephanie Hubbard CHIEF STEWARD/STEWARDESS [facility] 2023-06-10 15:52:10 rMnj5IkinRXOenUa0ayS51yIuqU7CquaV2d CgO4ugkY4SFJOUtpmAAOjLAFbVVaJ8871-0 5:52:10 Addended by: VIKTOR RAYMUNDO on: 06/10/2023 03:52 PM Modules accepted: Orders [id number] ZvtyeftiYB0626-53-38U24:52:10Addend um DocumentTXT1.2.840.340192.1.13.104. 2.7.2.332487|[id number] for patient xxwe60375-7YocvKFVJVQAMUJ[address] Il[id number] 2HUNSKNKONWODFJYSKCMJVI9026-01-59P5 5:52:101.2.840.141236.1.72.3.15|1.2 .840.018194.1.13.104.2.7.2.727879_1 [id number] [facility] 2023-06-10 11:07:55 8r2IrLYVFnwwVsu12so07Q2dHpEVAaxX885 ggLlZmjUJtW5egGJY0iqK++Jaii9Y1812-8 1:07:55 Hello,The prior authorization has been denied for the following medication:Drug: QuliptaInsurance: [employer] MedicaidPA#: [id number]: Step-Therapy. 2 or more prophylactic therapies must have been tried in the last 365 days. Each trial must be 60-days or more. Thank you 23811-7Suwerfyrz encounter DzomTR8763-21-73L39:10:45Telephone encounter NoteTXT1.2.840.911548.1.13.104.2.7. 2.433265|[id number] for patient hwbf43360-8UcwqBGQSRHZZHN[address] Ww[id number] 3NDTAQGYUPUXVRATETWAHBX4864-67-72F0 1:10:451.2.840.638229.1.72.3.15|1.2 .840.577206.1.13.104.2.7.2.727879_1 [id number] [facility]"
[2024-02-20] MEDS ORDERED: IBUPROFEN 400 MG TAB ONE (22:49)
[2024-02-20 23:15] LABS: SARS-CoV-2 Antigen CONTROL BLUE LINE VIS/BG OK; SARS-CoV-2 Antigen Rapid Res Negative (Negative)
[2024-02-21] MEDS ORDERED: AZITHROMYCIN 250 MG TAB ONE (01:08)
--- NOTE | 2024-02-21 01:25 | ER ---
Nurse's Notes [facility] Name: Fatou Colon Age: 18 yrs Sex: Female : 2005 Arrival Date: 02/20/2024 Time: 22:14 Bed 16 Private MD: Diagnosis: Acute pharyngitis, unspecified;Acute upper respiratory infection, unspecified Presentation: 02/19 22:39 Chief complaint: Patient states: Sore throat X1 week, pt also reports chills and cm10 headache. Coronavirus screen: Client denies travel out of the [place] in the last 14 days. At this time, the client does not indicate any symptoms associated with coronavirus-19. Ebola Screen: Patient denies travel to an Ebola-affected area in the 21 days before illness onset. No symptoms or risks identified at this time. Initial Sepsis Screen: Does the patient meet any 2 criteria? No. Patient's initial sepsis screen is negative. Does the patient have a suspected source of infection? No. Patient's initial sepsis screen is negative. Risk Assessment: Do you want to hurt yourself or someone else? Patient reports no desire to harm self or others. Onset of symptoms was February 20, 2024. 22:39 Method Of Arrival: Ambulatory cm10 22:39 Acuity: JOSE 4 cm10 Triage Assessment: 22:40 General: Appears in no apparent distress. comfortable, Behavior is calm, cooperative. cm10 Pain: Complains of pain in Throat Pain currently is 5 out of 10 on a pain scale. Pain began 1 week ago. EENT: Throat is clear is pink Reports pain when swallowing. Neuro: No deficits noted. Level of Consciousness is awake, alert, obeys commands, Oriented to person, place, time, situation, Appropriate for age. Respiratory: No deficits noted. Airway is patent Respiratory effort is even, unlabored, Respiratory pattern is regular, symmetrical. GI: No deficits noted. No signs and/or symptoms were reported involving the gastrointestinal system. : No deficits noted. No signs and/or symptoms were reported regarding the genitourinary system. Derm: No deficits noted. No signs and/or symptoms reported regarding the dermatologic system. Skin is intact, Skin is pink, warm \T\ dry. Musculoskeletal: No deficits noted. Range of motion: intact in all extremities. 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 - Infectious Disease History:: Denies. - Social history:: Smoking status: Reported history of juuling and/or vaping. Screenin:52 [facility] ED Fall Risk Assessment (Adult) History of falling in the last 3 months, cm10 including since admission No falls in past 3 months (0 pts) Confusion or Disorientation No (0 pts) Intoxicated or Sedated No (0 pts) Impaired Gait No (0 pts) Mobility Assist Device Used No (0 pt) Altered Elimination No (0 pt) Score/Fall Risk Level 0 - 2 = Low Risk Oriented to surroundings, Maintained a safe environment, Hourly rounding (assess needs \T\ fall precautionary measures) done. Abuse screen: Denies threats or abuse. Denies injuries from another. Nutritional screening: No deficits noted. Tuberculosis screening: No symptoms or risk factors identified. Assessment: 02/20 00:40 Reassessment: Patient appears in no apparent distress at this time. Patient and/or jb4 family updated on plan of care and expected duration. Pain level reassessed. Patient is alert, oriented x 3, equal unlabored respirations, skin warm/dry/pink. Patient states feeling better. Patient states symptoms have improved. 01:38 Reassessment: Patient appears in no apparent distress at this time. Patient and/or jb4 family updated on plan of care and expected duration. Pain level reassessed. Patient is alert, oriented x 3, equal unlabored respirations, skin warm/dry/pink. Vital Signs: 02/19 22:39 BP 117 / 93; Pulse 89; Resp 18; Temp 98.1(O); Pulse Ox 100% on R/A; Weight 82.55 kg; cm10 Height 5 ft. 4 in. ; Pain 5/10; 22:39 Body Mass Index 31.24 (82.55 kg, 162.56 cm) cm10 22:39 Pain Scale: Adult cm10 ED Course: 22:17 Patient arrived in ED. ra3 22:40 Triage completed. cm10 22:41 Arm band placed on Patient placed in waiting room. cm10 22:46 Claude Grace MD is Attending Physician. [facility] 22:47 Flu Sent. cm10 22:47 SARS RAPID Sent. cm10 22:47 Strep Sent. cm10 22:51 No provider procedures requiring assistance completed. COVID swab sent to lab. Flu cm10 and/or RSV swab sent to lab. Strep swab sent to lab. 22:52 Patient has correct armband on for positive identification. cm10 22:59 Chest Single View XRAY In Process Unspecified. EDKS 02/20 00:40 Faizan Duvall, RN is Primary Nurse. 4 01:38 Provided Education on: discharge instructions.. jb4 01:38 Patient did not have IV access during this emergency room visit. jb4 Administered Medications: 02/19 22:51 Drug: Ibuprofen PO 800 mg PO once Route: PO; cm10 02/20 01:11 Drug: AZITHromycin PO 500 mg PO once Route: PO; jb4 Medication: 02/19 22:52 VIS not applicable for this client. cm10 Outcome: 02/20 01:24 Discharge ordered by . billie 01:38 Discharged to home ambulatory, with family, [facility] 01:38 Condition: stable 01:38 Discharge instructions given to patient, Instructed on discharge instructions, follow up and referral plans. medication usage, Demonstrated understanding of instructions, follow-up care, medications, Prescriptions given X 2, 01:39 Patient left the ED. jb4 Signatures: Dispatcher [employer] [facility] Claude Grace MD MD cha Bryson, James, RN RN jb4 Marizol Tierney RN RN cm10 Anh Coleman ra3 Corrections: (The following items were deleted from the chart) 02/19 22:40 22:40 Allergies: Aspirin; cm10 cm10
--- NOTE | 2024-02-21 01:25 | EDPHYS ---
Physician Documentation [facility] Name: Fatou Colon Age: 18 yrs Sex: Female : 2005 Arrival Date: 02/20/2024 Time: 22:14 Bed 16 Private MD: ED Physician Claude Grace HPI: 02/20 01:08 This 18 yrs old Female presents to ER via Ambulatory with complaints of Sore billie Throat, Stiff Neck - chills. 01:08 The patient presents with sore throat. The patient describes throat pain as constant, billie raw, scratchy. Onset: The symptoms/episode began/occurred 5 day(s) ago. Severity of symptoms: At their worst the symptoms were mild, in the emergency department the symptoms are unchanged. Associated signs and symptoms: The patient has no apparent associated signs or symptoms. The patient has not experienced similar symptoms in the past. 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 - Infectious Disease History:: Denies. - Social history:: Smoking status: Reported history of juuling and/or vaping. ROS: 02/20 01:16 Constitutional: Negative for fever, chills, and weight loss, Eyes: Negative for injury, billie pain, redness, and discharge, Neck: Negative for injury, pain, and swelling, Cardiovascular: Negative for chest pain, palpitations, and edema, Respiratory: Negative for shortness of breath, cough, wheezing, and pleuritic chest pain, Abdomen/GI: Negative for abdominal pain, nausea, vomiting, diarrhea, and constipation, Back: Negative for injury and pain, : Negative for injury, bleeding, discharge, and swelling, MS/Extremity: Negative for injury and deformity, Skin: Negative for injury, rash, and discoloration, Neuro: Negative for headache, weakness, numbness, tingling, and seizure, Psych: Negative for depression, anxiety, suicide ideation, homicidal ideation, and hallucinations, Allergy/Immunology: Negative for hives, rash, and allergies, Endocrine: Negative for neck swelling, polydipsia, polyuria, polyphagia, and marked weight changes, Hematologic/Lymphatic: Negative for swollen nodes, abnormal bleeding, and unusual bruising, ENT: Positive for difficulty swallowing, Exam: 01:16 Constitutional: This is a well developed, well nourished patient who is awake, alert, billie and in no acute distress. Head/Face: Normocephalic, atraumatic. Eyes: Pupils equal round and reactive to light, extra-ocular motions intact. Lids and lashes normal. Conjunctiva and sclera are non-icteric and not injected. Cornea within normal limits. Periorbital areas with no swelling, redness, or edema. Neck: Trachea midline, no thyromegaly or masses palpated, and no cervical lymphadenopathy. Supple, full range of motion without nuchal rigidity, or vertebral point tenderness. No Meningismus. Chest/axilla: Normal chest wall appearance and motion. Nontender with no deformity. No lesions are appreciated. Cardiovascular: Regular rate and rhythm with a normal S1 and S2. No gallops, murmurs, or rubs. Normal PMI, no JVD. No pulse deficits. Respiratory: Lungs have equal breath sounds bilaterally, clear to auscultation and percussion. No rales, rhonchi or wheezes noted. No increased work of breathing, no retractions or nasal flaring. Abdomen/GI: Soft, non-tender, with normal bowel sounds. No distension or tympany. No guarding or rebound. No evidence of tenderness throughout. Back: No spinal tenderness. No costovertebral tenderness. Full range of motion. Skin: Warm, dry with normal turgor. Normal color with no rashes, no lesions, and no evidence of cellulitis. MS/ Extremity: Pulses equal, no cyanosis. Neurovascular intact. Full, normal range of motion. Neuro: Awake and alert, GCS 15, oriented to person, place, time, and situation. Cranial nerves II-XII grossly intact. Motor strength 5/5 in all extremities. Sensory grossly intact. Cerebellar exam normal. Normal gait. Psych: Awake, alert, with orientation to person, place and time. Behavior, mood, and affect are within normal limits. 01:16 Neck: ROM/movement: is normal, no acute changes, pain, is not appreciated, limited range of motion, is not appreciated, Meningeal signs: are not present, Kernig's sign is negative, Brudzinski's sign is negative, nuchal rigidity, is not appreciated, 01:16 Musculoskeletal/extremity: DVT Exam: No signs of deep vein thrombosis. no pain, no swelling, no tenderness, negative Homans' sign noted on exam, no appreciated bluish discoloration, no erythema, no increased warmth, Vital Signs: 02/19 22:39 BP 117 / 93; Pulse 89; Resp 18; Temp 98.1(O); Pulse Ox 100% on R/A; Weight 82.55 kg; cm10 Height 5 ft. 4 in. ; Pain 5/10; 22:39 Body Mass Index 31.24 (82.55 kg, 162.56 cm) cm10 22:39 Pain Scale: Adult cm10 MDM: 22:47 Patient medically screened. [facility] 02/20 01:20 Differential diagnosis: Allergic rhinitis, cocksackie virus, echovirus infection, group billie A strep tonsillitis, influenza, laryngitis, peritonsillar abscess pharyngitis, retropharyngeal abcess tonsillitis, upper respiratory infection, uvulitis, viral syndrome. Data reviewed: vital signs, nurses notes, lab test result(s), Flu: negative. Consideration of Admission/Observation Escalation of care including admission/observation considered. I considered the following discharge prescriptions or medication management in the emergency department Medications were administered in the Emergency Department. See MAR. Independent interpretation of the following test(s) in the Emergency Department X-Ray: My interpretation is cxr neg. Test considered but Not performed: Labs: no cbc , no cmp. Care significantly affected by the following chronic conditions: anemia, anxiety, bipolar, migraine. 02/19 22:42 Order name: Strep; Complete Time: 00:33 cm10 02/19 22:42 Order name: SARS RAPID; Complete Time: 00:33 cm10 02/19 22:42 Order name: Flu; Complete Time: 00:33 cm10 02/19 23:06 Order name: Throat Culture EDMS 02/19 22:43 Order name: Chest Single View XRAY cm10 Administered Medications: 02/19 22:51 Drug: Ibuprofen PO 800 mg PO once Route: PO; cm10 02/20 01:11 Drug: AZITHromycin PO 500 mg PO once Route: PO; jb4 Disposition Summary: 02/21/24 01:24 Discharge Ordered Notes: Location: Home [facility] Problem: new [facility] Symptoms: have improved [facility] Condition: Stable [facility] Diagnosis - Acute pharyngitis, unspecified billie - Acute upper respiratory infection, unspecified billie Followup: [facility] - With: Private Physician - When: 2 - 3 days - Reason: Recheck today's complaints, Continuance of care, Re-evaluation by your physician Discharge Instructions: - Pharyngitis billie - Sore Throat billie - Upper Respiratory Infection, Adult billie - Cool Mist Vaporizer billie - Pharyngitis, [id number] billie - Cough, Adult billie - Discharge Summary Sheet jb4 Forms: - Medication Reconciliation Form [facility] - Antibiotic Education [facility] - Prescription Opioid Use [facility] - Patient Portal Instructions [facility] - Leadership Thank You Letter [facility] - Work release form jb4 Prescriptions: - Imani-D 12 Hour 60-120 mg Oral Tablet Sustained Release 12 hr - take 1 tablet ORAL route every 12 hours As needed; 20 tablet; Refills: 0, billie Product Selection Permitted - Zithromax Z-Mehdi 250 mg Oral Tablet - take 1 tablet ORAL route as directed for 5 days Day 1 - take two (2) tablets [facility] one time. 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 EDMS EDMS 22:42 22:42 SARS-COV-2 Antigen Rapid+I.LAB.BRZ ordered. EDMS EDMS 22:42 22:42 Influenza Screen (A \T\ B)+BA.LAB.BRZ ordered. EDMS EDMS
[2024-02-21 02:07] VITALS: BP 117/93; TEMP 98.1; O2SAT 100
--- NOTE | 2024-02-22 13:43 | RAD REPORT ---
EXAM DESCRIPTION: XR Chest, 1 View CLINICAL HISTORY: The patient is 18 years old and is Female; COUGH Bed Name: IW2 TECHNIQUE: Frontal view of the chest. COMPARISON: No relevant prior studies available. FINDINGS: LUNGS: No discrete focal consolidation. PLEURAL SPACE: No appreciable pleural effusion or pneumothorax. MEDIASTINUM: Unremarkable cardiomediastinal contour. BONES/JOINTS: No acute osseous abnormality. IMPRESSION: No acute cardiopulmonary abnormality. Electronically signed by: Vijay Denise MD 02/20/2024 11:49 PM CDT Due to temporary technical issues with the PACS/Fluency reporting system, reports are being signed by the in house radiologists without review as a courtesy to insure prompt reporting. The interpreting radiologist is fully responsible for the content of the report.
== END 2024-02-21 01:39 | disposition home or self-care (01) ==
LOC: ER 22:14
DX: J06.9 Acute upper respiratory infection, unspecified (principal); Z11.52 Encounter for screening for COVID-19
CPT/HCPCS: 36415; 71045; 87070; 87081; 87804; 87811; 99283